=== PATIENT | male | born 1960 | race Hispanic/Latino ===

== ENCOUNTER 2020-05-08 15:30 | Emergency (ER) | payer MEDICAID ==
[2020-05-08] MEDS ORDERED: ACETAMINOPHEN EXTRA STRENGTH 500 MG TABLET ONE (16:41)
[2020-05-08] MEDS ORDERED: KETOROLAC TROMETHAMINE 60 MG/2 ML VIAL ONE (16:41)
== END 2020-05-08 18:06 | disposition home or self-care (01) ==
LOC: EDH 15:30
DX: M19.031 Primary osteoarthritis, right wrist (principal); M25.531 Pain in right wrist; I10 Essential (primary) hypertension; E66.01 Morbid (severe) obesity due to excess calories; E11.51 Type 2 diabetes mellitus with diabetic peripheral angiopathy without gangrene; Z88.0 Allergy status to penicillin; Z98.890 Other specified postprocedural states; Z72.0 Tobacco use; Z86.73 Personal history of transient ischemic attack (TIA), and cerebral infarction without residual deficits
CPT/HCPCS: 29125; 36415; 73110; 84550; 96372; 99284; J1885

== ENCOUNTER 2020-09-26 13:31 | Inpatient (IN) | payer MEDICAID ==
[~2020-09-26] VITALS: Ht 188 cm; Wt 104.3 kg
[2020-09-26] MEDS ORDERED: SODIUM CHLORIDE 0.9% 1000ML 1,000 ML IV ONE (14:14)
[2020-09-26 14:48] LABS: BASOPHILS % (AUTO) 0.6 % (0.0-5.0); HEMATOCRIT 31.5 % (42-54); MEAN CORPUSCULAR HEMOGLOBIN 26.8 pg (27.0-33.0); MEAN CORPUSCULAR HGB CONC 32.1 g/dL (32.0-36.0); MEAN CORPUSCULAR VOLUME 83.6 fL (79-99); MONOCYTES % (AUTO) 3.2 % (3.0-13.0); NEUTROPHILS % (AUTO) 83.8 % (40.0-77.0); PLATELET COUNT (AUTO) 344 K/uL (130-400); RED BLOOD CELL COUNT(AUTO) 3.77 MIL/uL (4.50-6.20); RED CELL DISTRIBUTION WIDTH 14.6 % (11.0-15.5); WHITE BLOOD COUNT (AUTO) 13.7 K/uL (4.8-10.8)
[2020-09-26 15:02] LABS: CREATININE 1.3 mg/dL (0.5-1.5); POTASSIUM 4.2 mmol/L (3.5-5.1)
[2020-09-26 15:15] LABS: ALBUMIN 2.7 g/dL (3.5-5.0); BILIRUBIN,TOTAL 0.8 mg/dL (0.2-1.0)
[2020-09-26 18:04] LABS: APPEARANCE,URINE Cloudy (CLEAR); BILIRUBIN,URINE Small (NEGATIVE); COLOR,URINE Dark Yellow (YELLOW); GLUCOSE, URINE (UA) Negative (NEGATIVE); KETONES,URINE 15 mg/dL (NEGATIVE); LEUKOCYTE ESTERASE ,URINE Trace (NEGATIVE); NITRATE,URINE Negative (NEGATIVE); OCCULT BLOOD,URINE Negative (NEGATIVE); PROTEIN,URINE 300 mg/dL (NEGATIVE)
[2020-09-26 18:20] LABS: BACTERIA,URINE Few /HPF (None Seen)
[2020-09-26 18:21] LABS: MUCUS,URINE Moderate LPF (None Seen); SQUAMOUS EPITHELIAL CELL,UR Moderate /HPF (0-2)
[2020-09-26] MEDS ORDERED: LEVOFLOXACIN 500 MG TABLET ONE (19:17)
[2020-09-27 07:18] LABS: BASOPHILS % (AUTO) 0.7 % (0.0-5.0); EOSINOPHILS % (AUTO) 2.9 % (0.0-8.0); HEMATOCRIT 31.8 % (42-54); LYMPHOCYTES % (AUTO) 24.3 % (21.0-51.0); MEAN CORPUSCULAR HEMOGLOBIN 26.6 pg (27.0-33.0); MEAN CORPUSCULAR HGB CONC 32.1 g/dL (32.0-36.0); MEAN CORPUSCULAR VOLUME 82.8 fL (79-99); MONOCYTES % (AUTO) 5.3 % (3.0-13.0); NEUTROPHILS % (AUTO) 66.5 % (40.0-77.0); PLATELET COUNT (AUTO) 372 K/uL (130-400); RED BLOOD CELL COUNT(AUTO) 3.84 MIL/uL (4.50-6.20); RED CELL DISTRIBUTION WIDTH 14.8 % (11.0-15.5); WHITE BLOOD COUNT (AUTO) 10.3 K/uL (4.8-10.8)
[2020-09-27 07:27] LABS: CREATININE 1.1 mg/dL (0.5-1.5); MAGNESIUM 1.1 mg/dL (1.80-2.40); POTASSIUM 3.9 mmol/L (3.5-5.1)
[2020-09-27] MEDS ORDERED: CARV6.25 PO (08:33)
[2020-09-27] MEDS ORDERED: CLOP75TA32 PO (08:33)
[2020-09-27] MEDS ORDERED: METH-811 PO (08:33)
[2020-09-27] MEDS ORDERED: NAPR-1023 PO (08:33)
[2020-09-27] MEDS ORDERED: INSU100I15 SQ (08:33)
[2020-09-27] MEDS ORDERED: ATOR40TA69 PO (08:33)
[2020-09-27] MEDS ORDERED: INSLAN SQ (08:33)
[2020-09-27] MEDS ORDERED: PARO40TA72 PO (08:33)
[2020-09-27] MEDS ORDERED: AMLO-258 PO (08:33)
[2020-09-27] MEDS ORDERED: ENAL20TA18 PO (08:33)
[2020-09-27] MEDS ORDERED: METF-446 PO (08:33)
[2020-09-27] MEDS ORDERED: ACET1TAB25 PO (08:33)
[2020-09-27] MEDS ORDERED: ENOXAPARIN SODIUM 30 MG/0.3 ML SQ ONE (08:41)
[2020-09-27] MEDS ORDERED: MAGNESIUM 2GM PREMIX 50ML 50 ML IV ONE (11:27)
[2020-09-27] MEDS ORDERED: SODIUM CHLORIDE 0.9% 1000ML 1,000 ML IV ONE (21:01)
[2020-09-28 05:28] LABS: BASOPHILS % (AUTO) 0.9 % (0.0-5.0); EOSINOPHILS % (AUTO) 4.6 % (0.0-8.0); HEMATOCRIT 31.9 % (42-54); LYMPHOCYTES % (AUTO) 25.6 % (21.0-51.0); MEAN CORPUSCULAR HEMOGLOBIN 26.7 pg (27.0-33.0); MEAN CORPUSCULAR HGB CONC 32.9 g/dL (32.0-36.0); MEAN CORPUSCULAR VOLUME 81.2 fL (79-99); NEUTROPHILS % (AUTO) 62.4 % (40.0-77.0); PLATELET COUNT (AUTO) 372 K/uL (130-400); RED BLOOD CELL COUNT(AUTO) 3.93 MIL/uL (4.50-6.20); RED CELL DISTRIBUTION WIDTH 14.6 % (11.0-15.5); WHITE BLOOD COUNT (AUTO) 9.9 K/uL (4.8-10.8)
[2020-09-28 05:46] LABS: ALBUMIN 3.1 g/dL (3.5-5.0); BILIRUBIN,TOTAL 0.8 mg/dL (0.2-1.0); MAGNESIUM 1.3 mg/dL (1.80-2.40); POTASSIUM 3.5 mmol/L (3.5-5.1); TOTAL PROTEIN, SERUM 6.7 g/dL (6.0-8.3)
[2020-09-28] MEDS ORDERED: PAROXETINE HCL 20 MG TABLET PO ONE (08:14)
[2020-09-28] MEDS ORDERED: ATORVASTATIN CALCIUM 40 MG TABLET ONE (08:14)
[2020-09-28] MEDS ORDERED: METRONIDAZOLE 500 MG TABLET ONE (08:14)
[2020-09-28] MEDS ORDERED: CLOPIDOGREL BISULFATE 75 MG TAB ONE (08:14)
[2020-09-28] MEDS ORDERED: ENOXAPARIN SODIUM 30 MG/0.3 ML SQ ONE (08:15)
[2020-09-28] MEDS ORDERED: MAGNESIUM 2GM PREMIX 50ML 50 ML IV ONE (08:15)
[2020-09-28] MEDS ORDERED: LEVOFLOXACIN 500 MG TABLET ONE (08:15)
[2020-09-28] MEDS ORDERED: AMLODIPINE BESYLATE 5 MG TAB ONE (08:15)
[2020-09-28] MEDS ORDERED: ENALAPRIL MALEATE 5 MG TAB ONE (08:16)
[2020-09-28] MEDS ORDERED: CARVEDILOL 12.5 MG TABLET PO ONE (08:16)
[2020-09-28] MEDS: INSULIN GLARGINE 100 UNITS/ML 10 ML VIAL SQ SCH ×2 (09:00→21:18)
[2020-09-28] MEDS: CARVEDILOL 6.25 MG TABLET PO SCH ×2 (09:00→21:16)
[2020-09-28] MEDS ORDERED: SODIUM CHLORIDE 0.9% 1000ML 1,000 ML IV ONE (09:49)
[2020-09-28 10:10] VITALS: BP 138/80
[2020-09-28] MEDS: PAROXETINE HCL 20 MG TABLET PO SCH (10:19)
[2020-09-28] MEDS: ATORVASTATIN CALCIUM 40 MG TABLET PO SCH (10:19)
[2020-09-28] MEDS: LEVOFLOXACIN 500 MG TABLET PO SCH (10:21)
[2020-09-28] MEDS: CLOPIDOGREL BISULFATE 75 MG TAB PO SCH (10:21)
[2020-09-28] MEDS: ENALAPRIL MALEATE 10 MG TABLET PO SCH (10:21)
[2020-09-28] MEDS: METRONIDAZOLE 500 MG TABLET PO SCH ×2 (10:22→21:16)
[2020-09-28] MEDS: AMLODIPINE BESYLATE 5 MG TAB PO SCH (10:22)
[2020-09-28 16:36] VITALS: BP 131/67
[2020-09-28 19:43] VITALS: BP 127/78
[2020-09-28 23:38] VITALS: BP 158/83
[2020-09-29 04:07] VITALS: BP 134/77
[2020-09-29 08:13] VITALS: BP 125/72
[2020-09-29] MEDS: ENALAPRIL MALEATE 10 MG TABLET PO SCH (09:07)
[2020-09-29] MEDS: CLOPIDOGREL BISULFATE 75 MG TAB PO SCH (09:07)
[2020-09-29] MEDS: CARVEDILOL 6.25 MG TABLET PO SCH (09:07)
[2020-09-29] MEDS: LEVOFLOXACIN 500 MG TABLET PO SCH (09:08)
[2020-09-29] MEDS: METRONIDAZOLE 500 MG TABLET PO SCH (09:08)
[2020-09-29] MEDS: AMLODIPINE BESYLATE 5 MG TAB PO SCH (09:08)
[2020-09-29] MEDS: ATORVASTATIN CALCIUM 40 MG TABLET PO SCH (09:08)
[2020-09-29] MEDS: PAROXETINE HCL 20 MG TABLET PO SCH (09:08)
[2020-09-29] MEDS: INSULIN GLARGINE 100 UNITS/ML 10 ML VIAL SQ SCH (09:56)
[2020-09-29 11:51] VITALS: BP 119/68
[2020-09-29] MEDS ORDERED: ACETAMINOPHEN-CODEINE 300/30MG TAB PO PRN (12:50)
== END 2020-09-29 14:00 | disposition home or self-care (01) | DRG 249 ==
LOC: EDH 13:31 → EDHIP 13:32 → 4BH 09-28 10:13
PROVIDERS: ADMIT Internal Medicine; ATTEND Internal Medicine
DX: K52.9 Noninfective gastroenteritis and colitis, unspecified (principal); E11.51 Type 2 diabetes mellitus with diabetic peripheral angiopathy without gangrene; N39.0 Urinary tract infection, site not specified; E83.42 Hypomagnesemia; I10 Essential (primary) hypertension; F32.9 Major depressive disorder, single episode, unspecified; E86.0 Dehydration; D64.9 Anemia, unspecified; E78.5 Hyperlipidemia, unspecified; Z88.0 Allergy status to penicillin; Z89.512 Acquired absence of left leg below knee
CPT/HCPCS: 36415; 71045; 80048; 80053; 81001; 82948; 83690; 83735; 84484; 85025; 87804; 93005; G0378; J1650; J3475; J7030

== ENCOUNTER 2021-03-26 14:10 | Emergency (ER) | payer MEDICAID ==
[~2021-03-26] VITALS: Ht 188 cm; Wt 90.7 kg
[~2021-03-26 14:10] MED LIST: ACET1TAB25 PO; AMLO-258 PO; ATOR40TA69 PO; CARV6.25 PO; CLOP75TA32 PO; ENAL20TA18 PO; INSLAN SQ; INSU100I15 SQ; METF-446 PO; METH-811 PO; NAPR-1023 PO; PARO40TA72 PO
[2021-03-26 15:47] LABS: BASOPHILS % (AUTO) 0.6 % (0.0-5.0); EOSINOPHILS % (AUTO) 1.1 % (0.0-8.0); HEMATOCRIT 31.6 % (42-54); LYMPHOCYTES % (AUTO) 14.5 % (21.0-51.0); MEAN CORPUSCULAR HEMOGLOBIN 28.2 pg (27.0-33.0); MEAN CORPUSCULAR HGB CONC 32.6 g/dL (32.0-36.0); MEAN CORPUSCULAR VOLUME 86.6 fL (79-99); MONOCYTES % (AUTO) 4.7 % (3.0-13.0); NEUTROPHILS % (AUTO) 78.7 % (40.0-77.0); PLATELET COUNT (AUTO) 307 K/uL (130-400); RED BLOOD CELL COUNT(AUTO) 3.65 MIL/uL (4.50-6.20); RED CELL DISTRIBUTION WIDTH 13.9 % (11.0-15.5); WHITE BLOOD COUNT (AUTO) 11.2 K/uL (4.8-10.8)
[2021-03-26 16:02] LABS: PROTHROMBIN TIME 10.9 SEC (9.6-11.6)
[2021-03-26 16:04] LABS: CREATININE 1.2 mg/dL (0.5-1.5); PARTIAL THROMBOPLASTIN TIME 26.2 SEC (26.3-35.5); POTASSIUM 3.8 mmol/L (3.5-5.1)
[2021-03-26 16:05] LABS: B-TYPE NATRIURETIC PEPTIDE 23 pg/mL (0-100)
[2021-03-26 16:16] LABS: ALBUMIN 2.9 g/dL (3.5-5.0); BILIRUBIN,TOTAL 0.6 mg/dL (0.2-1.0); MAGNESIUM 1.3 mg/dL (1.80-2.40); TOTAL PROTEIN, SERUM 6.4 g/dL (6.0-8.3)
[2021-03-26 20:27] LABS: APPEARANCE,URINE Cloudy (CLEAR); BILIRUBIN,URINE Negative (NEGATIVE); COLOR,URINE Dark Yellow (YELLOW); GLUCOSE, URINE (UA) TRACE mg/dL (NEGATIVE); KETONES,URINE Trace mg/dL (NEGATIVE); LEUKOCYTE ESTERASE ,URINE Trace (NEGATIVE); NITRATE,URINE Negative (NEGATIVE); OCCULT BLOOD,URINE Negative (NEGATIVE); PH,URINE 5.5 (5.0-8.0); PROTEIN,URINE >=1000 mg/dL (NEGATIVE)
[2021-03-26 20:34] LABS: BACTERIA,URINE Few /HPF (None Seen); MUCUS,URINE Moderate LPF (None Seen); SQUAMOUS EPITHELIAL CELL,UR Moderate /HPF (0-2)
[2021-03-26] MEDS ORDERED: MAGNESIUM 2GM PREMIX 50ML 50 ML IV ONE (20:42)
[2021-03-26] MEDS ORDERED: MAGN400T53 PO (20:42)
[2021-03-26] MEDS ORDERED: MAGNESIUM 2GM PREMIX 50ML 50 ML IV SCH (21:00)
[2021-03-27 00:52] VITALS: BP 147/68
== END 2021-03-27 01:05 | disposition home or self-care (01) ==
LOC: EDH 14:10
DX: E83.42 Hypomagnesemia (principal); R53.1 Weakness; E11.9 Type 2 diabetes mellitus without complications; I10 Essential (primary) hypertension; Z79.1 Long term (current) use of non-steroidal anti-inflammatories (NSAID); Z79.4 Long term (current) use of insulin; Z79.899 Other long term (current) drug therapy; Z86.73 Personal history of transient ischemic attack (TIA), and cerebral infarction without residual deficits; Z87.891 Personal history of nicotine dependence; Z88.0 Allergy status to penicillin; Z89.611 Acquired absence of right leg above knee
CPT/HCPCS: 36415; 71045; 80053; 81001; 82550; 83735; 83880; 84484; 85025; 85610; 85730; 93005; 96365; 96366; 99285; J3475

== ENCOUNTER 2023-07-18 13:04 | Emergency (ER) | payer MEDICAID ==
[~2023-07-18] VITALS: Ht 180.3 cm; Wt 86.6 kg
[~2023-07-18 13:04] MED LIST changes: +ACET-2079 PO; -ACET1TAB25 PO; +ENAL-91 PO; -ENAL20TA18 PO; +MAGN400T53 PO
[2023-07-18] MEDS: 0.9%NACL 1000ML 1,000 ML IV ONE (16:37)
[2023-07-18 16:55] LABS: BASOPHILS # (AUTO) 0.06 K/uL (0.00-0.20); BASOPHILS % (AUTO) 0.5 % (0.0-5.0); EOSINOPHILS # (AUTO) 0.05 K/uL (0.00-0.70); EOSINOPHILS % (AUTO) 0.4 % (0.0-8.0); HEMATOCRIT 35.8 % (42-54); IMMATURE GRANULOCYTE ABSOLUTE 0.05 K/uL (0-1); LYMPHOCYTES # (AUTO) 1.9 K/uL (1.0-4.8); LYMPHOCYTES % (AUTO) 17.3 % (21.0-51.0); MEAN CORPUSCULAR HEMOGLOBIN 28.2 pg (27.0-33.0); MEAN CORPUSCULAR HGB CONC 32.7 g/dL (32.0-36.0); MEAN CORPUSCULAR VOLUME 86.3 fL (79-99); MONOCYTES # (AUTO) 0.3 K/uL (0.1-1.0); MONOCYTES % (AUTO) 2.8 % (3.0-13.0); NEUTROPHILS # (AUTO) 8.8 K/uL (1.8-7.7); NEUTROPHILS % (AUTO) 78.6 % (40.0-77.0); PLATELET COUNT (AUTO) 422 K/uL (130-400); RED BLOOD CELL COUNT(AUTO) 4.15 MIL/uL (4.50-6.20); RED CELL DISTRIBUTION WIDTH 13.3 % (11.0-15.5); WHITE BLOOD COUNT (AUTO) 11.2 K/uL (4.8-10.8)
[2023-07-18 17:10] LABS: MAGNESIUM 1.5 mg/dL (1.80-2.40); THYROID STIMULATING HORMONE 1.11 uIU/mL (0.36-3.74)
[2023-07-18 17:25] LABS: COVID19 (SARS ANTIGEN RAPID) PRESUMPTIVE NEGATIVE (NEGATIVE); INFLUENZA TYPE A Negative For Type A (NEGATIVE); INFLUENZA TYPE B Negative For Type B (NEGATIVE)
[2023-07-18 18:28] LABS: CREATININE 1.7 mg/dL (0.5-1.5); POTASSIUM 4.6 mmol/L (3.5-5.1)
[2023-07-18 20:08] VITALS: BP 134/66; PULSE 67; RESP 18; O2SAT 100
== END 2023-07-18 20:10 | disposition home or self-care (01) ==
LOC: EDH 13:04
DX: R55 Syncope and collapse (principal); I12.9 Hypertensive chronic kidney disease with stage 1 through stage 4 chronic kidney disease, or unspecified chronic kidney disease; E11.22 Type 2 diabetes mellitus with diabetic chronic kidney disease; N18.9 Chronic kidney disease, unspecified; E78.00 Pure hypercholesterolemia, unspecified; Z79.02 Long term (current) use of antithrombotics/antiplatelets; Z79.4 Long term (current) use of insulin; Z79.84 Long term (current) use of oral hypoglycemic drugs; Z79.899 Other long term (current) drug therapy; Z86.73 Personal history of transient ischemic attack (TIA), and cerebral infarction without residual deficits; Z88.0 Allergy status to penicillin; Z20.822 Contact with and (suspected) exposure to COVID-19
CPT/HCPCS: 99285; 71045; 87426; 84443; 83735; 84484; 80048; 85025; 87804 ×2; 36415; 93005; J7030

== ENCOUNTER 2023-11-09 15:56 | Emergency (ER) | payer MEDICAID ==
[~2023-11-09] VITALS: Ht 188 cm; Wt 90.7 kg
[2023-11-09 16:47] LABS: BASOPHILS # (AUTO) 0.04 K/uL (0.00-0.20); BASOPHILS % (AUTO) 0.4 % (0.0-5.0); EOSINOPHILS # (AUTO) 0.12 K/uL (0.00-0.70); EOSINOPHILS % (AUTO) 1.3 % (0.0-8.0); HEMATOCRIT 33.6 % (42-54); IMMATURE GRANULOCYTE ABSOLUTE 0.02 K/uL (0-1); LYMPHOCYTES # (AUTO) 1.3 K/uL (1.0-4.8); LYMPHOCYTES % (AUTO) 13.7 % (21.0-51.0); MEAN CORPUSCULAR HEMOGLOBIN 28.2 pg (27.0-33.0); MEAN CORPUSCULAR HGB CONC 33.6 g/dL (32.0-36.0); MEAN CORPUSCULAR VOLUME 83.8 fL (79-99); MONOCYTES # (AUTO) 0.4 K/uL (0.1-1.0); MONOCYTES % (AUTO) 4.3 % (3.0-13.0); NEUTROPHILS # (AUTO) 7.6 K/uL (1.8-7.7); NEUTROPHILS % (AUTO) 80.1 % (40.0-77.0); PLATELET COUNT (AUTO) 270 K/uL (130-400); RED BLOOD CELL COUNT(AUTO) 4.01 MIL/uL (4.50-6.20); RED CELL DISTRIBUTION WIDTH 14.5 % (11.0-15.5); WHITE BLOOD COUNT (AUTO) 9.5 K/uL (4.8-10.8)
[2023-11-09 16:57] LABS: CREATININE 1.3 mg/dL (0.5-1.3); POTASSIUM 3.9 mmol/L (3.5-5.1)
[2023-11-09 19:35] LABS: APPEARANCE,URINE CLEAR (CLEAR); BILIRUBIN,URINE NEGATIVE (NEGATIVE); COLOR,URINE YELLOW (YELLOW); GLUCOSE, URINE (UA) 70 mg/dL (NEGATIVE); KETONES,URINE NEGATIVE (NEGATIVE); LEUKOCYTE ESTERASE ,URINE 25 Leu/uL (NEGATIVE); NITRATE,URINE 2+ (NEGATIVE); OCCULT BLOOD,URINE MODERATE (NEGATIVE); PROTEIN,URINE 300 mg/dL (NEGATIVE); UROBILINOGEN,URINE 0.2 mg/dL (0.2-1.0)
[2023-11-09 19:43] LABS: AMPHET/METH SCREEN,URINE NEGATIVE (NEGATIVE); BARBITURATE SCREEN, URINE NEGATIVE (NEGATIVE); BENZODIAZEPINES SCREEN,URINE NEGATIVE (NEGATIVE); CANNABINOID SCREEN,URINE NEGATIVE (NEGATIVE); COCAINE SCREEN,URINE NEGATIVE (NEGATIVE); OPIATE SCREEN,URINE NEGATIVE (NEGATIVE); PHENCYCLIDINE SCREEN,URINE NEGATIVE (NEGATIVE)
[2023-11-09 19:45] VITALS: BP 157/80; PULSE 60; RESP 18; O2SAT 99
[2023-11-09 20:02] LABS: BACTERIA,URINE MANY /HPF (None Seen); MUCUS,URINE RARE LPF (None Seen); OTHER CASTS, URINE 2 /LPF (None Seen); RBC,URINE TNTC /HPF (0-1)
[2023-11-09] MEDS ORDERED: SULF1TAB42 PO (20:12)
== END 2023-11-09 20:26 | disposition home or self-care (01) ==
LOC: EDH 15:56
DX: R53.1 Weakness (principal); N39.0 Urinary tract infection, site not specified; E11.9 Type 2 diabetes mellitus without complications; E78.00 Pure hypercholesterolemia, unspecified; I10 Essential (primary) hypertension; Z79.02 Long term (current) use of antithrombotics/antiplatelets; Z79.4 Long term (current) use of insulin; Z79.84 Long term (current) use of oral hypoglycemic drugs; Z79.899 Other long term (current) drug therapy; Z88.0 Allergy status to penicillin
CPT/HCPCS: 36415; 71045; 80048; 80305; 81001; 84484; 85025; 87077; 87088; 87186; 93005